=== PATIENT | female | born 1960 | race Caucasian/White ===

== ENCOUNTER 2016-09-28 21:47 | Inpatient (IN) | payer OTHER ==
[~2016-09-28] VITALS: Ht 157.5 cm; Wt 81.6 kg
[2016-09-28] MEDS ORDERED: OPTIRAY 350 100 ML VIAL HMH IV ONE (21:48)
[2016-09-29] VITALS (9 sets, daily range): BP systolic 112–136; RESP 18–20; TEMP 98.6–99.4; BMI 32.9
[2016-09-29] MEDS ORDERED: SODIUM CHLORIDE 0.9% 1,000 ML ONE (00:39)
[2016-09-29] MEDS ORDERED: DILAUDID 1 MG/ML AMP IV PRN (04:45)
[2016-09-29] MEDS ORDERED: ALU/MAG/SIM 30 ML UDC PO PRN (04:45)
[2016-09-29] MEDS ORDERED: NICOTINE 21 MG/24 HR TRANSDERM PRN (04:45)
[2016-09-29] MEDS ORDERED: BISACODYL 10 MG SUPP RECTAL PRN (04:45)
[2016-09-29] MEDS ORDERED: ONDANSETRON 4 MG VIAL IV PRN (04:45)
[2016-09-29] MEDS ORDERED: MAG HYDROX 30 ML UDC PO PRN (04:45)
[2016-09-29] MEDS ORDERED: BISACODYL EC 5 MG TAB PO PRN (04:45)
[2016-09-29] MEDS: CEFTRIAXONE 1 GM in SODIUM CHLORIDE 0.9% 50 ML IV SCH (09:00)
[2016-09-29] MEDS: FAMOTIDINE 20 MG INJ IV SCH ×2 (09:38→22:37)
[2016-09-29] MEDS: AZITHROMYCIN 500 MG in SODIUM CHLORIDE 0.9% 250 ML IV SCH (10:02)
[2016-09-29] MEDS: SODIUM CHLORIDE 0.9% 1,000 ML IV SCH (13:47)
[2016-09-29] MEDS ORDERED: MAGNEVIST 20ML IV ONE (17:03)
[2016-09-30] VITALS (7 sets, daily range): BP systolic 121–139; RESP 16–20; TEMP 98–98.7
[2016-09-30] MEDS: SODIUM CHLORIDE 0.9% 1,000 ML IV SCH ×2 (02:00→11:40)
[2016-09-30] MEDS: CEFTRIAXONE 1 GM in SODIUM CHLORIDE 0.9% 50 ML IV SCH (08:59)
[2016-09-30] MEDS: AZITHROMYCIN 500 MG in SODIUM CHLORIDE 0.9% 250 ML IV SCH (08:59)
[2016-09-30] MEDS: FAMOTIDINE 20 MG INJ IV SCH (09:07)
== END 2016-09-30 14:04 | disposition home or self-care (01) | DRG 440 ==
LOC: ER 21:47 → ENPENDDIS 09-29 02:11 → 3NT 09-29 02:11
PROVIDERS: ADMIT Internal Medicine; ATTEND Internal Medicine
DX: K85.90 Acute pancreatitis without necrosis or infection, unspecified (principal); I10 Essential (primary) hypertension; J20.9 Acute bronchitis, unspecified; E11.9 Type 2 diabetes mellitus without complications; E78.5 Hyperlipidemia, unspecified; M10.9 Gout, unspecified; F17.200 Nicotine dependence, unspecified, uncomplicated; Z79.82 Long term (current) use of aspirin; Z79.84 Long term (current) use of oral hypoglycemic drugs; B34.9 Viral infection, unspecified
CPT/HCPCS: 36415; 74177; 74183; 76376; 76705; 80053; 81001; 82553; 82947; 83690; 84484; 85025; 85610; 85730; 87040; 87804; 94799; 96360

== ENCOUNTER 2016-10-09 21:29 | Inpatient (IN) | payer OTHER ==
[~2016-10-09] VITALS: Ht 157.5 cm; Wt 77.3 kg
[2016-10-09] MEDS ORDERED: LORAZEPAM 2 MG/ML VIAL ONE (22:06)
[2016-10-09] MEDS ORDERED: SODIUM CHLORIDE 0.9% 1,000 ML ONE (22:06)
[2016-10-10 02:00] VITALS: Ht 157.5 cm; Wt 77.3 kg
[2016-10-10] MEDS ORDERED: HALOPERIDOL 5 MG TAB PO PRN (02:00)
[2016-10-10] MEDS ORDERED: ACETAMINOPHEN 325 MG TAB PO PRN (02:00)
[2016-10-10] MEDS ORDERED: DIPHENHYDRAMINE 50 MG CAP PO PRN (02:00)
[2016-10-10] MEDS ORDERED: TRAZODONE 50 MG TAB PO PRN (02:00)
[2016-10-10] MEDS ORDERED: LORAZEPAM 2 MG TAB PO PRN (02:00)
[2016-10-10] MEDS ORDERED: ALU/MAG/SIM 30 ML UDC PO PRN (02:00)
[2016-10-10] MEDS ORDERED: LORAZEPAM 2 MG/ML VIAL IM PRN (02:00)
[2016-10-10] MEDS ORDERED: MAG HYDROX 30 ML UDC PO PRN (02:00)
[2016-10-10] MEDS ORDERED: DIPHENHYDRAMINE 50 MG/ML VIAL IM PRN (02:00)
[2016-10-10 02:01] VITALS: BP_SYST 175; RESP 22; TEMP 98.4
[2016-10-10] MEDS: HALOPERIDOL 5 MG/ML VIAL IM PRN ×2 (07:41→07:43)
[2016-10-10] MEDS: MULTIVITS/MINERALS (THERAGRAN M) TAB PO SCH (09:00)
[2016-10-10] MEDS: NICOTINE 21 MG/24 HR TRANSDERM SCH (09:00)
[2016-10-10] MEDS ORDERED: BENZTROPINE MES 1 MG TAB PO PRN (13:10)
[2016-10-10 15:00] VITALS: BP_SYST 175; RESP 20; TEMP 97.6
[2016-10-10] MEDS: METOPROLOL TART 50 MG TAB PO SCH ×2 (15:29→21:00)
[2016-10-10] MEDS: ASPIRIN EC 81 MG TAB PO SCH (16:47)
[2016-10-10] MEDS: amLODIPine 2.5 MG TAB PO SCH (21:00)
[2016-10-10] MEDS ORDERED: HALOPERIDOL 5 MG TAB PO SCH (21:00)
[2016-10-10 22:01] VITALS: BP_SYST 156; RESP 20; TEMP 98.1
[2016-10-11 04:00] VITALS: BP_SYST 159; RESP 20; TEMP 98.2
[2016-10-11] MEDS: NICOTINE 21 MG/24 HR TRANSDERM SCH (08:01)
[2016-10-11] MEDS: MULTIVITS/MINERALS (THERAGRAN M) TAB PO SCH (08:02)
[2016-10-11] MEDS: amLODIPine 2.5 MG TAB PO SCH ×2 (08:02→21:00)
[2016-10-11] MEDS: METOPROLOL TART 50 MG TAB PO SCH ×2 (08:06→21:00)
[2016-10-11] MEDS: ASPIRIN EC 81 MG TAB PO SCH (08:06)
[2016-10-11 09:11] VITALS: BP_SYST 173; RESP 20; TEMP 97.7
[2016-10-11 20:10] VITALS: BP_SYST 165; RESP 20; TEMP 97.6
[2016-10-11] MEDS ORDERED: OLANZAPINE 5 MG TAB PO SCH (21:00)
[2016-10-11 21:30] VITALS: BP_SYST 186; RESP 20; TEMP 97.3
[2016-10-12] MEDS ORDERED: DIPHENHYDRAMINE 50 MG CAP PO PRN (00:25)
[2016-10-12 05:30] VITALS: BP_SYST 161; RESP 18; TEMP 98.4
[2016-10-12 08:20] VITALS: BP_SYST 179; RESP 16; TEMP 97.8
[2016-10-12] MEDS: ASPIRIN EC 81 MG TAB PO SCH (08:33)
[2016-10-12] MEDS: METOPROLOL TART 50 MG TAB PO SCH (08:33)
[2016-10-12] MEDS: amLODIPine 2.5 MG TAB PO SCH (08:34)
[2016-10-12] MEDS: MULTIVITS/MINERALS (THERAGRAN M) TAB PO SCH (08:34)
[2016-10-12 08:49] VITALS: BP_SYST 175; RESP 16; TEMP 97.8
[2016-10-12] MEDS ORDERED: THIAMINE 100 MG TAB PO SCH (09:00)
[2016-10-12] MEDS: NICOTINE 21 MG/24 HR TRANSDERM SCH (09:00)
== END 2016-10-12 14:15 | DRG 885 ==
LOC: ENRESERVDT → ENRESERV → ENRESERVTM → ER 21:29 → EMR 10-10 00:54 → PSY 10-10 01:36
PROVIDERS: ADMIT Psychiatry & Neurology Psychiatry; ATTEND Psychiatry & Neurology Psychiatry
DX: F29 Unspecified psychosis not due to a substance or known physiological condition (principal); K85.90 Acute pancreatitis without necrosis or infection, unspecified; E72.20 Disorder of urea cycle metabolism, unspecified; I10 Essential (primary) hypertension; E11.9 Type 2 diabetes mellitus without complications; E78.00 Pure hypercholesterolemia, unspecified; Z79.82 Long term (current) use of aspirin; Z79.84 Long term (current) use of oral hypoglycemic drugs
CPT/HCPCS: 36415; 80053; 80061; 80074; 80307; 80320; 80329; 81003; 82140; 82390; 82550; 82607; 82746; 83018; 83036; 83540; 83605; 83615; 83690; 84120; 84145; 84439; 84443; 84466; 85025; 85610; 85730; 96361; 96374; 99232